=== PATIENT | male | born 1985 | race Caucasian/White ===

== ENCOUNTER 2016-08-14 15:00 | Emergency (ER) | payer BC ==
[2016-08-14 15:12] VITALS: BP 143/90
--- NOTE | 2016-08-14 15:40 | UC ---
Neck Pain HPI - HPI Summary HPI Summary: 30 yo male with left trapezius pain x 5-6 days no CP/SOB no injury works cleaning/doing dishes right handed - History of Current Complaint Chief Complaint: UCUpperExtremity Stated Complaint: lft shoulder/neck pain/upper bck pain Time Seen by Provider: 08/14/16 15:22 Hx Obtained From: Patient Onset/Duration Of Injury/Symptoms: Days Mechanism Of Injury: No Known Trauma Timing: Constant Onset/Duration: Gradual Onset, Lasting Days Severity: Moderate Pain Intensity: 6 Pain Scale Used: 0-10 Numeric Character: Dull, Aching Aggravating Factors: Movement, Other: - rotating left shoulder Alleviating Factors: Other: - rest Associated Signs & Symptoms: Positive: Negative - Allergies/Home Medications Allergies/Adverse Reactions: Allergies Allergy/AdvReac Type Severity Reaction Status Date / Time Cefaclor [From [facility]] Allergy Swelling Verified 08/14/16 15:12 PMH/Surg Hx/FS Hx/Imm Hx Previously Healthy: Yes - Surgical History Surgical History: Yes Surgery Procedure, Year, and Place: [place] Teeth Extraction, 2013 - Family History Known Family History: Positive: Other - mom with thyroid CA and dyslipidemia Negative: Cardiac Disease, Hypertension, Diabetes - Social History Alcohol Use: None Substance Use Type: None Smoking Status (MU): Never Smoked Tobacco Household Exposure Type: Cigarettes - Immunization History Most Recent Influenza Vaccination: Current for Review Of Systems Constitutional: Positive: Negative Skin: Positive: Negative Eyes: Positive: Negative ENT: Positive: Negative Respiratory: Positive: Negative Cardiovascular: Positive: Negative Gastrointestinal: Positive: Negative Genitourinary: Positive: Negative Musculoskeletal: Positive: Myalgia Neurological: Positive: Negative Psychological: Positive: Negative All Other Systems Reviewed And Are Negative: Yes Physical Exam Triage Information Reviewed: Yes Appearance: Well-Appearing, No Pain Distress, Well-Nourished Vital Signs: Initial Vital Signs Temp 98.9 F 08/14/16 15:05 Pulse 110 08/14/16 15:05 Resp 20 08/14/16 15:05 BP 143/90 08/14/16 15:05 Pulse Ox 100 08/14/16 15:05 Vital Signs Reviewed: Yes Eyes: Positive: Conjunctiva Clear ENT: Positive: Hearing grossly normal. Negative: Nasal congestion, Nasal drainage, Trismus, Muffled/hoarse voice Neck: Positive: Supple, Nontender Respiratory: Positive: Lungs clear, Normal breath sounds, No respiratory distress Cardiovascular: Positive: RRR, No Murmur Musculoskeletal: Positive: ROM Intact, No Edema Neurological: Positive: Alert Psychological Exam: Normal Skin Exam: Normal Neck Pain Course/Dx - Differential Dx/Diagnosis Provider Diagnoses: left trapezius strain/spasm Discharge - Discharge Plan Condition: Stable Disposition: HOME Prescriptions: Naproxen Sodium [Naproxen Sodium 500 MG TAB] 500 mg PO BID PRN #30 tab PRN Reason: Pain Patient Education Materials: Muscle Strain (ED) Referrals: [facility] [Outside] - 2 Weeks (you need to find a local water restoration technician your BP is a little high and your pulse is a little fast) Additional Instructions: ice twice daily recheck for new or worsening symptoms or if not better in one week
== END 2016-08-14 15:41 | disposition home or self-care (01) ==
LOC: UCCORT 15:00
DX: S46.812A Strain of other muscles, fascia and tendons at shoulder and upper arm level, left arm, initial encounter (principal); X58.XXXA Exposure to other specified factors, initial encounter; Y93.9 Activity, unspecified; M62.838 Other muscle spasm; Y92.9 Unspecified place or not applicable; Z88.1 Allergy status to other antibiotic agents; Z77.22 Contact with and (suspected) exposure to environmental tobacco smoke (acute) (chronic)
CPT/HCPCS: 93005; 99212; G0463

== ENCOUNTER 2016-10-20 17:07 | Emergency (ER) | payer BC, OTHER ==
--- NOTE | 2016-10-20 17:13 | UC ---
Back Pain HPI - HPI Summary HPI Summary: 30 YEAR OLD MALE PRESENTS WITH LEFT SIDED BACK PAIN AFTER LIFTING A HEAVY BOX. - History of Current Complaint Stated Complaint: BACK INJURY (WC) Time Seen by Provider: 10/20/16 17:12 Onset/Duration: Sudden Onset Timing: Constant Severity Initially: Moderate Severity Currently: Moderate Pain Scale Used: 0-10 Numeric - 5 Back Pain: Is Discrete @ - LEFT SIDE Character: Sharp, Aching, Throbbing Aggravating: Movement Alleviating: Position Associated Signs And Symptoms: Positive: Negative - Allergies/Home Medications Allergies/Adverse Reactions: Allergies Allergy/AdvReac Type Severity Reaction Status Date / Time Cefaclor [From Ceclor] Allergy Swelling Verified 10/20/16 17:16 PMH/Surg Hx/FS Hx/Imm Hx Previously Healthy: Yes - Surgical History Surgical History: Yes Surgery Procedure, Year, and Place: [place] Teeth Extraction, 2013 - Family History Known Family History: Positive: Other - mom with thyroid CA and dyslipidemia Negative: Cardiac Disease, Hypertension, Diabetes - Social History Alcohol Use: None Substance Use Type: None Smoking Status (MU): Never Smoked Tobacco Household Exposure Type: Cigarettes - Immunization History Most Recent Influenza Vaccination: Current for Review of Systems Constitutional: Negative Skin: Negative Eyes: Negative ENT: Negative Respiratory: Negative Cardiovascular: Negative Gastrointestinal: Negative Genitourinary: Negative Motor: Negative Neurovascular: Negative Musculoskeletal: Other: - LEFT SIDED BACK PAIN Neurological: Negative Psychological: Negative All Other Systems Reviewed And Are Negative: Yes Physical Exam Triage Information Reviewed: Yes Vital Signs Reviewed: Yes Eye Exam: Normal ENT Exam: Normal Dental Exam: Normal Neck exam: Normal Neck: Positive: 1 Respiratory Exam: Normal Cardiovascular Exam: Normal Abdominal Exam: Normal Musculoskeletal: Positive: Other: - RIGHT SIDED BACK PAIN Neurological Exam: Normal Psychological Exam: Normal Skin Exam: Normal Back Pain Course/Dx - Differential Dx/Diagnosis Provider Diagnoses: LEFT SIDED BACK PAIN Discharge - Discharge Plan Condition: Stable Disposition: HOME Prescriptions: Meloxicam(NF) [Mobic(NF)] 7.5 mg PO BID #30 tab Methocarbamol TAB* [Robaxin 500 MG TAB*] 500 mg PO TID PRN #30 tab PRN Reason: Spasms - Back Patient Education Materials: Low Back Strain (ED), Acute Low Back Pain (ED) Forms: *Work Release Referrals: No Primary Care Phys,NOPCP [Primary Care Provider] -
[2016-10-20 17:16] VITALS: BP 155/96
[2016-10-20] MEDS ORDERED: Ibuprofen TAB* 200 MG PO ONE (17:23)
== END 2016-10-20 17:36 | disposition home or self-care (01) ==
LOC: UCCORT 17:07
DX: M54.9 Dorsalgia, unspecified (principal)
CPT/HCPCS: 99211; A9270-GY; G0463

== ENCOUNTER 2017-02-18 10:47 | Emergency (ER) | payer BC, OTHER ==
[2017-02-18 11:11] VITALS: BP 133/66
--- NOTE | 2017-02-18 12:24 | ED ---
Throat Pain/Nasal Congestion - HPI Summary HPI Summary: 31 yr old male with the complaint of post nasal drip, and coughing for about 2- 3 weeks. He has not had fever, or shortness of breath. He has had green color sputum. Denies fever, chills. Denies CP. - History of Current Complaint Chief Complaint: UCRespiratory Time Seen by Provider: 02/18/17 12:12 - Allergies/Home Medications Allergies/Adverse Reactions: Allergies Allergy/AdvReac Type Severity Reaction Status Date / Time Cefaclor [From [facility]] Allergy Swelling Verified 02/18/17 11:11 PMH/Surg Hx/FS Hx/Imm Hx Previously Healthy: Yes - Surgical History Surgery Procedure, Year, and Place: [place] Teeth Extraction, 2013 Infectious Disease History: No Infectious Disease History: Denies: Traveled Outside the [place] in Last 30 Days - Family History Known Family History: Positive: Other - mom with thyroid CA and dyslipidemia Negative: Cardiac Disease, Hypertension, Diabetes - Social History Occupation: Employed Full-time Alcohol Use: None Substance Use Type: Reports: None Smoking Status (MU): Never Smoked Tobacco Review of Systems Negative: Fever, Chills Positive: Nasal Discharge Positive: Cough All Other Systems Reviewed And Are Negative: Yes Physical Exam Triage Information Reviewed: Yes Vital Signs On Initial Exam: Initial Vitals Temp Pulse Resp BP Pulse Ox 98.9 F 88 16 133/66 99 02/18/17 11:08 02/18/17 11:08 02/18/17 11:08 02/18/17 11:08 02/18/17 11:08 Vital Signs Reviewed: Yes Appearance: Positive: Well-Appearing, No Pain Distress Skin: Positive: Warm, Skin Color Reflects Adequate Perfusion Eyes: Positive: EOMI ENT: Positive: Pharynx normal, Nasal congestion, TM dull - left, TM red - left red Neck: Positive: Nontender Respiratory/Lung Sounds: Positive: Clear to Auscultation, Breath Sounds Present Cardiovascular: Positive: RRR. Negative: Murmur Abdomen Description: Positive: Nontender Musculoskeletal: Positive: Strength/ROM Intact Neurological: Positive: Sensory/Motor Intact, Alert, Oriented to Person Place, Time, CN Intact II-III Psychiatric: Positive: Normal Diagnostics - Vital Signs Vital Signs Temp Pulse Resp BP Pulse Ox 02/18/17 11:08 98.9 F 88 16 133/66 99 - Laboratory Lab Statement: Any lab studies that have been ordered have been reviewed, and results considered in the medical decision making process. EENT Course/Dx - Course Course Of Treatment: 31 yr old with otitis media and sinus post nasal drip. Rx with biaxin. Allergies to cephalosporin Cefaclor. - Diagnoses Provider Diagnoses: Otitis media, Sinusitis Discharge - Discharge Plan Condition: Good Disposition: HOME Prescriptions: Clarithromycin TAB* [Biaxin 500 MG TAB*] 500 mg PO BID #20 tab Patient Education Materials: Otitis Media (ED), Sinusitis (ED) Referrals: Nichole Almazan [Primary Care Provider] - 2 Days
== END 2017-02-18 12:31 | disposition home or self-care (01) ==
LOC: UCCORT 10:47
DX: H66.90 Otitis media, unspecified, unspecified ear (principal); J34.9 Unspecified disorder of nose and nasal sinuses
CPT/HCPCS: 99212; G0463

== ENCOUNTER 2019-01-31 10:37 | Emergency (ER) | payer BC ==
[2019-01-31 10:51] VITALS: BP 162/85
--- NOTE | 2019-01-31 11:28 | UC ---
Throat Pain/Nasal [place] HPI - HPI Summary HPI Summary: Pt presents with c/o worsening ST and "sores in throat" and generalized malaise X3 days. - History of Current Complaint Chief Complaint: UCRespiratory Stated Complaint: SORE THROAT SINUS COUGH RUNNY NOSE Time Seen by Provider: 01/31/19 11:01 Hx Obtained From: Patient Onset/Duration: Sudden Onset, Lasting Days, Still Present Severity: Moderate Pain Intensity: 5 Cough: Productive Associated Signs & Symptoms: Positive: Dysphagia, Hoarseness - Epiglottits Risk Factors Epiglottis Risk Factors: Negative - Allergies/Home Medications Allergies/Adverse Reactions: Allergies Allergy/AdvReac Type Severity Reaction Status Date / Time cefaclor [From [facility]] Allergy Swelling Verified 01/31/19 10:49 PMH/Surg Hx/FS Hx/Imm Hx Previously Healthy: Yes - Surgical History Surgical History: Yes Surgery Procedure, Year, and Place: [place] Teeth Extraction, 2013 - Family History Known Family History: Positive: Other - mom with thyroid CA and dyslipidemia Negative: Cardiac Disease, Hypertension, Diabetes - Social History Occupation: Employed Full-time Lives: With Family Alcohol Use: None Substance Use Type: None Smoking Status (MU): Never Smoked Tobacco Have You Smoked in the Last Year: No Household Exposure Type: Cigarettes - Immunization History Most Recent Influenza Vaccination: current Review of Systems All Other Systems Reviewed And Are Negative: Yes Constitutional: Positive: Chills, Fatigue Skin: Positive: Negative Eyes: Positive: Negative ENT: Positive: Sore Throat Respiratory: Positive: Cough Cardiovascular: Positive: Negative Gastrointestinal: Positive: Negative Genitourinary: Positive: Negative Motor: Positive: Negative Neurovascular: Positive: Negative Musculoskeletal: Positive: Negative Neurological: Positive: Negative Psychological: Positive: Negative Is Patient Immunocompromised?: No Physical Exam Triage Information Reviewed: Yes Appearance: Ill-Appearing Vital Signs: Initial Vital Signs Temp 97.9 F 01/31/19 10:47 Pulse 93 01/31/19 10:47 Resp 20 01/31/19 10:47 BP 162/85 01/31/19 10:47 Pulse Ox 100 01/31/19 10:47 Vital Signs Reviewed: Yes Eye Exam: Normal ENT: Positive: Pharyngeal erythema, Other - multiple ulcerations on soft palate , tonsils and pharynx Dental Exam: Normal Neck exam: Normal Respiratory Exam: Normal Cardiovascular Exam: Normal Musculoskeletal Exam: Normal Neurological Exam: Normal Psychological Exam: Normal Skin Exam: Normal Throat Pain/Nasal Course/Dx - Differential Dx/Diagnosis Differential Diagnosis/HQI/PQRI: Pharyngitis, Tonsillitis Provider Diagnosis: Aphthae, oral, Sore throat (viral) Discharge ED - Sign-Out/Discharge Documenting (check all that apply): Patient Departure All imaging exams completed and their final reports reviewed: No Studies - Discharge Plan Condition: Stable Disposition: HOME Prescriptions: predniSONE TAB* [Deltasone 20 MG TAB*] 20 mg PO DAILY #5 tab ValACYclovir (*) [Valtrex 500 mg (*)] 500 mg PO Q12H #14 tab Patient Education Materials: Pharyngitis (ED), Canker Sores (ED) Forms: *Work Release Referrals: Nichole Almazan [Primary Care Provider] - If Needed - Billing Disposition and Condition Condition: STABLE Disposition: Home
== END 2019-01-31 11:40 | disposition home or self-care (01) ==
LOC: UCCORT 10:37
DX: J02.9 Acute pharyngitis, unspecified (principal); K12.0 Recurrent oral aphthae; R05 Cough; R53.83 Other fatigue; Z88.1 Allergy status to other antibiotic agents
CPT/HCPCS: 87651; 99212; G0463